=== PATIENT | female | born 1990 | race African-American/Black ===

== ENCOUNTER 2016-05-16 21:59 | Emergency (ER) | payer MEDICAID ==
[~2016-05-16 21:59] MED LIST: FERR1TAB36 PO; PREN1CAP20; ZANT150T2 PO
--- NOTE | 2016-05-16 22:40 | PD ---
HPI Travel History International Travel<30 Days: No Contact w/Intl Traveler<30Days: No Known Affected Area: No History of Present Illness HPI This patient is a 26-year-old 1 para 0 EDC is June 04, 2015 presently at 37 weeks and 2 days she presents with the chief complaint of feeling like she is getting smaller possibly leaking of fluid no susan contractions no vaginal bleeding the baby is active care with Theodora Harmon is courses been unremarkable amnisure is negative History Past Medical History Narrative Medical No known drug allergies no major medical problems Obstetric History Obstetric History First Past Surgical History Surgical History: No Previous Surgery Family History Family History: Negative Social History Alcohol Use: No Tobacco Use: No Substance Abuse: No Allergies-Medications (Allergen,Severity, Reaction): Coded Allergies: No Known Allergies (Verified , 05/11/16) Home Meds Reported Medications Ranitidine (Zantac)150 Mg [id number] Mg PO BID #60 TAB Ref 0 03/22/16 W/O Vit A W/ Fe Carbo (Prenate Mini 18-0.6-0.4-350 mg)1 Cap Cap 03/22/16 Ferrous Sulfate (Iron)325 Mg [id number] Mg PO BIDPC Ref 0 Take after a meal. 03/22/16 Physical Exam Narrative GENERAL: Well-nourished, well-developed patient. Alert oriented 3 and cooperative in no acute distress CARDIOVASCULAR: Regular rate and rhythm without murmurs, gallops, or rubs. RESPIRATORY: Breath sounds equal bilaterally. No accessory muscle use. ABDOMEN/GI: Abdomen is gravid and consistent with 37 weeks gestation no palpable contractions Gravid to [-] weeks size size equals dates Fundal Height: [-] GENITOURINARY: External Genitalia: intact and normal in appearance BUS glands: [-] Cervix: [-] Posterior firm Dilatation: [-] Closed Effacement: [-] 0 Station: [-] Vertex is at a 0 to -1 station Presentation: [-] Vertex Membranes: [intact Uterine Contractions: [-] Patient FHT's: Category: [-] 1 Baseline: [-] 130 Reactive: [-]+ Accelerations up to 160 Variability: [-] Moderate fujf-wc-rali variability Decels: [-] 0 EXTREMITIES: No cyanosis or edema. 2+ reflexes NEUROLOGICAL: Awake and alert. Motor and sensory grossly within normal limits. Five out of 5 muscle strength in all muscle groups. Normal speech. Data Data Vital Signs Reviewed: Yes (blood pressure 113/74 pulse 76 respiration 18 temperature is 98.1) [facility] Medical Record Reviewed: Yes Interpretation(s) 26-year-old at 37 weeks and 2 days No clinical evidence of ruptured membranes Not in labor Category 1 tracing The patient is describing is lightening of the baby descending into the pelvis Plan Patient has been adequately monitored with category 1 tracing Discharge home By mouth fluid hydration Keep her appointment on with [facility] Refer her to what to expect when you're expecting Diagnosis Diagnosis: Primary Impression: Lightening of fetus during in third trimester Disposition: 01 DISCHARGE HOME Condition: Stable Patient Instructions: General Instructions Departure Forms: Tests/Procedures Lacy Finn MD May 16, 2016 22:40
[2016-06-16] MEDS ORDERED: MEDR150I IM (11:26)
[2016-07-14] MEDS ORDERED: DEPO150I IM ×2 (11:31→11:32)
[2016-10-06] MEDS ORDERED: DEPO150I IM (16:27)
== END 2016-05-16 23:05 | disposition home or self-care (01) ==
LOC: HOBED 21:59
DX: O26.893 Other specified pregnancy related conditions, third trimester (principal); Z3A.37 37 weeks gestation of pregnancy
CPT/HCPCS: 84112; 99284

== ENCOUNTER 2016-05-17 20:48 | Emergency (ER) | payer MEDICAID ==
--- NOTE | 2016-05-17 21:34 | PD ---
HPI Chief Complaint Water leaking and having contractions Date Seen: May 17, 2016 Travel History International Travel<30 Days: No Contact w/Intl Traveler<30Days: No History of Present Illness HPI Patient is a 37 week intrauterine followed to [facility] presents complaining of possibly water leaking and having contractions. Denies bleeding. heart rate tracing is reactive with accelerations and she is faby every 2-3 minutes Para: 0 : 1 Allergies-Medications (Allergen,Severity, Reaction): Coded Allergies: No Known Allergies (Verified , 05/11/16) Home Meds Reported Medications Ranitidine (Zantac)150 Mg [id number] Mg PO BID #60 TAB Ref 0 03/22/16 W/O Vit A W/ Fe Carbo (Prenate Mini 18-0.6-0.4-350 mg)1 Cap Cap 03/22/16 Ferrous Sulfate (Iron)325 Mg [id number] Mg PO BIDPC Ref 0 Take after a meal. 03/22/16 Review of Systems Gastrointestinal: Abdominal Pain Physical Exam Narrative GENERAL: Well-nourished, well-developed patient. SKIN: Warm and dry. HEAD: Normocephalic and atraumatic. EYES: No scleral icterus. No injection or drainage. ENT: No nasal drainage noted. Mucous membranes pink. Airway patent. NECK: Supple, trachea midline. No JVD. CARDIOVASCULAR: Regular rate and rhythm without murmurs, gallops, or rubs. RESPIRATORY: Breath sounds equal bilaterally. No accessory muscle use. BREASTS: Bilateral exam showed no masses , no retractions, no nipple discharge. ABDOMEN/GI: Abdomen soft, non-tender, bowel sounds present, no rebound, no guarding Gravid to [36-] weeks size Fundal Height: [35 cm-] GENITOURINARY: External Genitalia: intact and normal in appearance BUS glands: [-] Cervix: [-closed] Dilatation: 0[-] Effacement: [thick-] Station: [-3] Presentation: [-vtx] Membranes: [intact amnisure neg Uterine Contractions: [q 2-3 min-] FHT's: Category: [1-] Baseline: [144-] Reactive: [-yes] Variability: [-] Decels: [-none] EXTREMITIES: No cyanosis or edema. BACK: Nontender without obvious deformity. No CVA tenderness. NEUROLOGICAL: Awake and alert. Motor and sensory grossly within normal limits. Five out of 5 muscle strength in all muscle groups. Normal speech. Data Data Labs amnisure neg MDM Medical Record Reviewed: No Interpretation(s) 37 week intrauterine followed by careful women presents complaining of possible leakage of fluid and contractions no bleeding noted heart rate tracing reactive and she is faby every 2-3 minutes. Patient's amnio sure is negative, and her cervix is closed Plan Plan to discharge patient home to bedrest offered a pain shot for relief that she's thinking about that ,she may opted for Demerol Phenergan IM if not then she can use Tylenol at home liberally increase her by mouth fluids a heating pad use as well as hot bath Diagnosis Diagnosis: Primary Impression: No leakage of amniotic fluid into vagina Additional Impression: False labor Disposition: 01 DISCHARGE HOME Condition: Stable Bryan Murillo II, MD May 17, 2016 21:34
[2016-06-16] MEDS ORDERED: MEDR150I IM (11:26)
[2016-07-14] MEDS ORDERED: DEPO150I IM ×2 (11:31→11:32)
[2016-10-06] MEDS ORDERED: DEPO150I IM (16:27)
== END 2016-05-17 21:50 | disposition home or self-care (01) ==
LOC: HOBED 20:48
DX: O47.1 False labor at or after 37 completed weeks of gestation (principal); Z3A.37 37 weeks gestation of pregnancy
CPT/HCPCS: 59025; 84112

== ENCOUNTER 2016-06-01 01:18 | Inpatient (IN) | payer MEDICAID ==
[2016-06-01] VITALS (72 sets, daily range): BP systolic 72–124; BP diastolic 48–102; PULSE 59–111; RESP 18–20; TEMP 97–98.3
[~2016-06-01] VITALS: Ht 157.5 cm; Wt 58.5 kg
[2016-06-01] MEDS ORDERED: LACTATED RINGER'S 1000 ML INJ 1,000 ML IV PRN (02:08)
--- NOTE | 2016-06-01 02:08 | HHI.HP ---
HPI Chief Complaint Planes of contractions and leaking fluid Date Seen: Jun 01, 2016 Travel History International Travel<30 Days: No Contact w/Intl Traveler<30Days: No History of Present Illness HPI Patient is a 26-year-old black female at 39 weeks 5 days seen by [facility] presents complaining of contractions and leakage of fluid denies bleeding. Her baby is active heart rate tracing is reactive and she is faby every 2 minutes, her amnio sure is positive she is leakage of fluid noted on exam Para: 0 : 1 History Past Medical History Medical History: Denies Significant Hx Social History Alcohol Use: No Tobacco Use: No Substance Abuse: No Allergies-Medications (Allergen,Severity, Reaction): Coded Allergies: No Known Allergies (Verified , 05/30/16) Home Meds Reported Medications Ranitidine (Zantac)150 Mg [id number] Mg PO BID #60 TAB Ref 0 03/22/16 W/O Vit A W/ Fe Carbo (Prenate Mini 18-0.6-0.4-350 mg)1 Cap Cap 03/22/16 Ferrous Sulfate (Iron)325 Mg [id number] Mg PO BIDPC Ref 0 Take after a meal. 03/22/16 Review of Systems General / Constitutional: No: Fever, Weight Gain, Chills, Other Eyes: No: Diploplia, Blurred Vision, Visual changes, Pain, Photophobia HENT: No: Headaches, Vertigo, Lightheadedness Cardiovascular: No: Irregular Rhythm, Chest Pain or Discomfort, Palpitations, Tachycardia, Syncope, Varicosities, Edema, Cyanosis Respiratory: No: Cough, Short of Breath, Other Gastrointestinal: No: Nausea, Vomiting, Diarrhea Genitourinary: No: Decreased Urinary Output, Oliguria Musculoskeletal: No: Limited ROM, Weakness, Cramping, Edema, Pain Skin: No Rash, No Itching, No Dryness, No Lumps, No Change in Pigmentation, No Change in Nails, No Alopecia, No Lesions Neurologic: No: Weakness, Dizziness, Syncope, Focal Abnormalities, Coordination Problem, Headache, Slurred Speech, Seizures Psychiatric: No: Depression, Suicidal Ideations, Homicidal Ideation Endocrine: No: Heat Intolerance, Cold Intolerance, Polydipsia, Polyuria, Other Physical Exam Narrative GENERAL: Well-nourished, well-developed patient. SKIN: Warm and dry. HEAD: Normocephalic and atraumatic. EYES: No scleral icterus. No injection or drainage. ENT: No nasal drainage noted. Mucous membranes pink. Airway patent. NECK: Supple, trachea midline. No JVD. CARDIOVASCULAR: Regular rate and rhythm without murmurs, gallops, or rubs. RESPIRATORY: Breath sounds equal bilaterally. No accessory muscle use. BREASTS: Bilateral exam showed no masses , no retractions, no nipple discharge. ABDOMEN/GI: Abdomen soft, non-tender, bowel sounds present, no rebound, no guarding Gravid to [38-] weeks size Fundal Height: [35 cm-] GENITOURINARY: External Genitalia: intact and normal in appearance BUS glands: [-] Cervix: [-] Dilatation: [-1] Effacement: [80-] Station: [-2] Presentation: [vtx-] Membranes: [ ruptured] + amnisure Uterine Contractions: [q 2 min-] FHT's: Category: [1-] Baseline: [144-] Reactive: [yes-] Variability: [-mod] Decels: [none-] EXTREMITIES: No cyanosis or edema. BACK: Nontender without obvious deformity. No CVA tenderness. NEUROLOGICAL: Awake and alert. Motor and sensory grossly within normal limits. Five out of 5 muscle strength in all muscle groups. Normal speech. Data Data Labs amnisure + Assessment/Plan Assessment and Plan This patient is a 26-year-old white female at 39-40 weeks presents complaining of leakage of fluid contractions, she is noted to be in early latent phase labor with a ruptured membranes, and be sure is positive, cervix is 1 cm 80% -2 This patient to be admitted the hospital and augmented as needed necessary and anticipate vaginal delivery, her GBS is negative Bryan Murillo II, MD Jun 01, 2016 02:08
[2016-06-01] MEDS ORDERED: OXYTOCIN 30 UNITS-500ML PREMIX 500 ML IV ONE (02:15)
[2016-06-01] MEDS ORDERED: SODIUM CHLORID 0.9% 500 ML INJ 500 ML IV PRN (02:15)
[2016-06-01] MEDS ORDERED: MINERAL OIL 10 ML VIAL TOPICAL PRN (02:15)
[2016-06-01] MEDS ORDERED: CITRIC ACID-SODIUM CITRATE LIQ 30 ML UDC PO SCH (02:15)
[2016-06-01] MEDS ORDERED: LIDOCAINE HCL 1% 50 ML VIAL INFIL PRN (02:15)
[2016-06-01] MEDS ORDERED: LIDOCAINE HCL 1% 50 ML VIAL I-DERMAL PRN (02:15)
[2016-06-01] MEDS ORDERED: SODIUM CHLOR 0.9% 1000 ML INJ 1,000 ML IV PRN (02:28)
[2016-06-01] MEDS: LACTATED RINGER'S 1000 ML INJ 1,000 ML IV SCH ×2 (02:38→18:08)
[2016-06-01 02:44] LABS: AUTOMATED NEUTROPHIL # 5.5 TH/MM3 (1.8-7.7); BASOPHIL % 0.4 % (0.0-2.0); EOSINOPHIL % 0.4 % (0.0-4.0); HEMATOCRIT 33.9 % (35.0-46.0); HEMO FLAGS DIFF FINAL; LYMPHOCYTE # 2.4 TH/MM3 (1.0-4.8); MEAN CELL VOLUME 87.4 FL (80.0-100.0); MEAN CORPUSCULAR HEMOGLOBIN 28.7 PG (27.0-34.0); MEAN CORPUSCULAR HGB CONC 32.9 % (32.0-36.0); MONO % 9.6 % (0.0-8.0); NEUT % 62.6 % (16.0-70.0); PLATELET COUNT 175 TH/MM3 (150-450); RED BLOOD COUNT 3.88 MIL/MM3 (4.00-5.30); RED CELL DISTRIBUTION WIDTH 13.4 % (11.6-17.2); WHITE BLOOD COUNT 8.7 TH/MM3 (4.0-11.0)
[2016-06-01 02:45] LABS: BACTERIA, URINE RARE /hpf; BLOOD, URINE NEG (NEG); COMMENT (UR) CULT NOT INDICATED; CULTURE IF INDICATED CULT NOT INDICATED; GLUCOSE,URINE NEG (NEG); KETONE, URINE NEG (NEG); MUCUS URINE FEW /lpf (OCC); NITRITE,URINE NEG (NEG); PH, URINE 6.5 (5.0-8.5); SQUAMOUS EPITHELIAL CELL URINE <1 /hpf (0-5); URINE COLOR LIGHT-YELLOW (YELLW/STRAW)
[2016-06-01] MEDS ORDERED: BUTORPHANOL TARTRATE INJ 2 MG/ML VIAL IM PRN (06:30)
[2016-06-01] MEDS ORDERED: BUTORPHANOL TARTRATE INJ 2 MG/ML VIAL IV PUSH PRN (07:00)
[2016-06-01] MEDS ORDERED: BUTORPHANOL TARTRATE INJ 1 MG/ML VIAL IV PUSH PRN (07:00)
[2016-06-01] MEDS ORDERED: fentaNYL 2MCG-BUPIV 0.125% INJ 100 ML ONE (07:16)
[2016-06-01] MEDS ORDERED: ePHEDrine/NS 50 MG/5 ML SYR ONE (07:16)
[2016-06-01] MEDS ORDERED: ePHEDrine/NS 50 MG/5 ML SYR IV PRN (08:45)
[2016-06-01] MEDS ORDERED: fentaNYL 2MCG-BUPIV 0.125% INJ 100 ML EPIDURAL SCH (08:45)
[2016-06-01] MEDS ORDERED: DO NOT ADMINISTER ANTICOAGULANTS XX PRN (08:45)
[2016-06-01] MEDS ORDERED: NO SYSTEM NARCOTICS XX PRN (08:45)
--- NOTE | 2016-06-01 09:26 | PD.LABORPN ---
Subjective Subjective Patient resting in bed. Some pain with contractions. Otherwise, no complaints Objective Vital Signs Vital Signs Date Time Temp Pulse Resp B/P Pulse Ox O2 Delivery O2 Flow Rate FiO2 06/01/16 05:45 97.0 18 06/01/16 05:09 18 06/01/16 04:02 18 Objective Pelvic Exam: Dilatation: 5 Effacement: 100% Station: -1 Presentation: vertex Membranes: ruptured Uterine Contractions: q5-7 minutes FHT's: Category: 1 Baseline: 120 Reactive: yes Variability: moderate Decels: 1-2 variables Assessment/Plan Assessment and Plan 26 year old at 39/5 in labor - Category 1 FHT with a couple variable - CVX 5/100/-1 Plan: - Expectant management - LR @ 125ml/h - Anticipate vaginal delivery Davis Redding MD R1 Jun 01, 2016 09:26
--- NOTE | 2016-06-01 10:28 | PD.LABORPN ---
Subjective Subjective Changing shifts Dr. Ford coming on duty Chart reviewed This patient is a 26-year-old 1 para 0 at 39 weeks and 5 days she states she started leaking fluid about 11 PM last night her testing was positive upon admission Group B strep negative No known drug allergies Patient presently has an epidural for pain relief and is comfortable Presently blood pressure 98/70 pulse 72 O2 sat of 100% Baseline heart rate 1:30 with accelerations up to 160 Pelvic examination; cervix is 6 cm dilated 100% effaced with the vertex at a 0 station Estimated weight of 6-1/2 pounds Patient is faby irregularly As she is making change we'll not start Pitocin at this point We'll reevaluate for progress if no progress beyond 6 cm we'll augment with Pitocin at that time Patient agrees with this plan Objective Vital Signs Vital Signs Date Time Temp Pulse Resp B/P Pulse Ox O2 Delivery O2 Flow Rate FiO2 06/01/16 09:48 20 06/01/16 09:45 61 112/58 06/01/16 09:40 76 06/01/16 09:30 66 109/66 06/01/16 09:25 68 06/01/16 09:20 63 06/01/16 09:15 61 98/61 06/01/16 09:11 20 06/01/16 09:10 70 06/01/16 09:05 75 06/01/16 09:00 89 105/48 06/01/16 09:00 74 06/01/16 08:55 79 06/01/16 08:50 84 06/01/16 08:45 82 06/01/16 08:45 93 101/50 06/01/16 08:30 111 06/01/16 08:15 64 06/01/16 08:05 96 06/01/16 08:00 85 06/01/16 07:55 98 06/01/16 07:50 79 06/01/16 07:40 83 06/01/16 05:45 97.0 18 06/01/16 05:09 18 06/01/16 04:02 18 Objective Pelvic Exam: Cervix: [-] Dilatation: [-] Effacement: [-] Station: [-] Presentation: [-] Membranes: [intact or ruptured] Uterine Contractions: [-] FHT's: Category: [-] Baseline: [-] Reactive: [-] Variability: [-] Decels: [-] Lacy Finn MD Jun 01, 2016 10:28
--- NOTE | 2016-06-01 13:27 | PD.LABORPN ---
Subjective Subjective Patient examined 100% effaced 8-9 cm dilated at a +1 almost +2 station Blood pressures 107/57 Contractions occurring about every 5 minutes Category 1 tracing Patient comfortable with an epidural Anticipate vaginal delivery Objective Vital Signs Vital Signs Date Time Temp Pulse Resp B/P Pulse Ox O2 Delivery O2 Flow Rate FiO2 06/01/16 12:15 97.8 76 20 106/59 06/01/16 12:10 74 06/01/16 12:05 76 06/01/16 12:00 68 110/66 06/01/16 11:55 77 06/01/16 11:50 74 06/01/16 11:45 75 105/67 06/01/16 11:40 78 06/01/16 11:35 71 06/01/16 11:30 76 102/64 06/01/16 11:25 72 06/01/16 11:20 69 06/01/16 11:15 72 105/65 06/01/16 11:05 74 06/01/16 11:00 72 06/01/16 11:00 72 20 106/72 06/01/16 10:55 68 06/01/16 10:50 67 06/01/16 10:45 77 06/01/16 10:45 85 118/64 06/01/16 10:35 73 06/01/16 10:30 62 06/01/16 10:30 74 20 106/60 06/01/16 10:25 76 06/01/16 10:20 70 06/01/16 10:15 71 98/70 06/01/16 10:15 97 06/01/16 10:10 70 06/01/16 10:05 70 06/01/16 10:00 69 94/53 06/01/16 09:48 20 06/01/16 09:45 61 06/01/16 09:45 61 112/58 06/01/16 09:40 76 06/01/16 09:30 66 06/01/16 09:30 66 109/66 06/01/16 09:25 68 06/01/16 09:20 63 06/01/16 09:15 61 98/61 06/01/16 09:15 64 06/01/16 09:11 20 06/01/16 09:10 70 06/01/16 09:05 75 06/01/16 09:00 89 105/48 06/01/16 09:00 74 06/01/16 08:55 79 06/01/16 08:50 84 06/01/16 08:45 82 06/01/16 08:45 93 101/50 06/01/16 08:30 111 06/01/16 08:15 64 06/01/16 08:05 96 06/01/16 08:00 85 06/01/16 07:55 98 06/01/16 07:50 79 06/01/16 07:40 83 06/01/16 05:45 97.0 18 Objective Pelvic Exam: Cervix: [-] Dilatation: [-] Effacement: [-] Station: [-] Presentation: [-] Membranes: [intact or ruptured] Uterine Contractions: [-] FHT's: Category: [-] Baseline: [-] Reactive: [-] Variability: [-] Decels: [-] Lacy Finn MD Jun 01, 2016 13:27
[2016-06-01] MEDS ORDERED: OXYTOCIN 30 UNITS-500ML PREMIX 500 ML ONE (14:07)
--- NOTE | 2016-06-01 14:57 | PD.OB.DELI ---
Delivery Date: Jun 01, 2016 Anesthesia: Epidural Episiotomy: None Vaginal Delivery: Normal Presentation: Occiput anterior Nuchal Cord: x1 (loosely) : Male Weight: 2370 Infant Care: Suctioned Placenta: Spontaneous delivery Laceration: Vaginal laceration, 2 deg Repair: Chromic running Additional Information This 26-year-old 1 para 1 at 39 and 4 presented with spontaneous rupture of membranes progressed to completely dilated completely effaced delivered over an intact perineum a viable male infant weight 5 lbs. 4 oz. equaling 2370grams with Apgars of 9 at 1 minute and 9 at 5 minutes Placenta delivered spontaneously and intact She sustained a small second-degree laceration which was repaired with 2-0 chromic suture epidural in force for pain relief Estimated blood loss less than 300 cc Sponge and instrument count were correct No active bleeding Uterus firm Baby stable mother stable Lacy Finn MD Jun 01, 2016 14:56
[2016-06-01] MEDS ORDERED: BENZOCAINE 20% TOPICAL SPRAY 60 ML CAN TOPICAL PRN (15:00)
[2016-06-01] MEDS ORDERED: ZOLPIDEM TARTRATE 5 MG TAB PO PRN (15:00)
[2016-06-01] MEDS ORDERED: ALUMINUM/MAGNESIUM/SIMETH 30 ML CUP PO PRN (15:00)
[2016-06-01] MEDS ORDERED: SODIUM CHLORIDE 0.9% FLUSH 5 ML FLUSH IV PRN (15:00)
[2016-06-01] MEDS ORDERED: DOCUSATE SODIUM 50 MG/SENNA 8.6 MG TAB PO PRN (15:00)
[2016-06-01] MEDS ORDERED: WITCH HAZEL 50%/GLYCERIN 12.5% 40 PAD JAR TOPICAL PRN (15:00)
[2016-06-01] MEDS ORDERED: ONDANSETRON ODT 4 MG TAB PO PRN (15:00)
[2016-06-01] MEDS: IBUPROFEN 600 MG TAB PO PRN ×2 (15:54→22:24)
[2016-06-01] MEDS ORDERED: MEASLES, MUMPS, RUBELLA VACCINE 0.5 ML VIAL SQ ONE (16:00)
[2016-06-01] MEDS ORDERED: DIPHTH/TETANUS/ACEL PERTUSSIS (BOOSTER) 0.5 ML VIAL/PFS IM ONE (16:00)
[2016-06-01] MEDS: SODIUM CHLORIDE 0.9% FLUSH 5 ML FLUSH IV SCH (21:00)
[2016-06-02] MEDS: LACTATED RINGER'S 1000 ML INJ 1,000 ML IV SCH ×2 (01:09→18:08)
[2016-06-02] MEDS: IBUPROFEN 600 MG TAB PO PRN ×3 (06:34→21:41)
--- NOTE | 2016-06-02 08:41 | HHI.OB ---
Subjective Post Day: 1 Remarks day #1. AFVSS overnight. Pain minimal. Decreased lochia. Denies dysuria. No breast tenderness. Appetite good. Bottle feeding. No nausea or vomiting. Endorses flatus. Denies bowel movement. Ambulating well. Denies calf pain, shortness of breath, or cough. Otherwise, she is doing well this morning and has no other complaints. Objective Vitals/I&O Vital Signs Date Time Temp Pulse Resp B/P Pulse Ox O2 Delivery O2 Flow Rate FiO2 06/01/16 17:28 98.3 06/01/16 17:28 90 18 106/65 06/01/16 16:00 68 117/69 06/01/16 15:51 20 06/01/16 15:46 63 117/68 06/01/16 15:30 68 122/102 06/01/16 15:28 20 06/01/16 15:15 77 117/67 06/01/16 15:00 74 124/76 06/01/16 14:58 20 06/01/16 14:45 78 118/65 06/01/16 14:00 78 06/01/16 13:45 71 06/01/16 13:30 69 06/01/16 13:25 80 06/01/16 13:20 63 06/01/16 13:15 64 06/01/16 13:15 68 107/57 06/01/16 13:06 20 06/01/16 13:00 67 101/64 06/01/16 13:00 69 06/01/16 12:55 72 06/01/16 12:50 72 06/01/16 12:45 68 109/63 06/01/16 12:45 66 06/01/16 12:40 68 06/01/16 12:31 67 72/50 06/01/16 12:30 59 06/01/16 12:15 64 06/01/16 12:15 97.8 76 20 106/59 06/01/16 12:10 74 06/01/16 12:05 76 06/01/16 12:00 68 110/66 06/01/16 12:00 71 06/01/16 11:55 77 06/01/16 11:50 74 06/01/16 11:45 70 06/01/16 11:45 75 105/67 06/01/16 11:40 78 06/01/16 11:35 71 06/01/16 11:30 76 102/64 06/01/16 11:30 77 06/01/16 11:25 72 06/01/16 11:20 69 06/01/16 11:15 72 06/01/16 11:15 72 105/65 06/01/16 11:05 74 06/01/16 11:00 72 06/01/16 11:00 72 20 106/72 06/01/16 10:55 68 06/01/16 10:50 67 06/01/16 10:45 77 06/01/16 10:45 85 118/64 06/01/16 10:35 73 06/01/16 10:30 62 06/01/16 10:30 74 20 106/60 06/01/16 10:25 76 06/01/16 10:20 70 06/01/16 10:15 71 98/70 06/01/16 10:15 97 06/01/16 10:10 70 06/01/16 10:05 70 06/01/16 10:00 69 94/53 06/01/16 09:48 20 06/01/16 09:45 61 06/01/16 09:45 61 112/58 06/01/16 09:40 76 06/01/16 09:30 66 06/01/16 09:30 66 109/66 06/01/16 09:25 68 06/01/16 09:20 63 06/01/16 09:15 61 98/61 06/01/16 09:15 64 06/01/16 09:11 20 06/01/16 09:10 70 06/01/16 09:05 75 06/01/16 09:00 89 105/48 06/01/16 09:00 74 06/01/16 08:55 79 06/01/16 08:50 84 06/01/16 08:45 82 06/01/16 08:45 93 101/50 Objective Remarks GENERAL: Well-nourished, well-developed patient. CARDIOVASCULAR: Regular rate and rhythm without murmurs, gallops, or rubs. RESPIRATORY: Breath sounds equal bilaterally. No accessory muscle use. ABDOMEN/GI: Abdomen soft, non-tender. Fundus: Firm, non-tender at umbilicus. GENITOURINARY: Light to moderate bleeding. EXTREMITIES: No cyanosis or edema, non-tender, without signs of DVT. Medications and IVs Current Medications Medications (Trade) Dose Ordered Sig/Davida Route Start Time Stop Time Status Last Admin Lactated Ringer's 1,000 ml @ 125 mls/hr Q8H IV 06/01/16 02:08 06/01/16 02:38 Lactated Ringer's 1,000 ml @ 3,000 mls/hr Q20M PRN IV 06/01/16 02:08 Sodium Chloride 500 ml @ 1,000 mls/hr ONCE PRN IV 06/01/16 02:15 06/08/16 02:14 (NS 1000 ml Inj) 1,000 ml @ 100 mls/hr Q10H PRN IV 06/01/16 02:28 (Muri-Lube Oil) 10 ml UNSCH PRN TOPICAL 06/01/16 02:15 (Stadol Inj) 1 mg Q2H PRN IV PUSH 06/01/16 07:00 (Stadol Inj) 2 mg Q2H PRN IV PUSH 06/01/16 07:00 Miscellaneous Information No systemic narcotics to be given except... UNSCH PRN XX 06/01/16 08:45 06/02/16 08:44 Miscellaneous Information DO NOT ADMINISTER ANY ANTICOAGUL... UNSCH PRN XX 06/01/16 08:45 06/02/16 08:44 (fentaNYL 2MCG-BUPIV 0.125% INJ) 100 ml @ 0 mls/hr TITRATE EPIDURAL 06/01/16 08:45 (ePHEDrine/NS 50 MG/5 ML SYR) 10 mg UNSCH PRN IV 06/01/16 08:45 06/02/16 08:44 (NS Flush) 2 ml BID IV 06/01/16 21:00 (NS Flush) 2 ml UNSCH PRN IV 06/01/16 15:00 (Tylenol) 650 mg Q4H PRN PO 06/01/16 15:00 (Motrin) 600 mg Q6H PRN PO 06/01/16 15:00 06/02/16 06:34 (Americaine 20% Top Spr) 1 spray Q4H PRN TOPICAL 06/01/16 15:00 06/01/16 22:24 (Tucks Pads) 1 applic QID PRN TOPICAL 06/01/16 15:00 06/01/16 22:24 (Gill-Colace) 2 tab Q12H PRN PO 06/01/16 15:00 (Ambien) 5 mg HS PRN PO 06/01/16 15:00 (Mag-Al Plus Susp Liq) 15 ml Q8H PRN PO 06/01/16 15:00 (Zofran Odt) 4 mg Q6H PRN PO 06/01/16 15:00 Assessment/Plan Assessment and Plan 26y/o who is PPD#1 s/p . -Continue routine care. -Percocet and Motrin PRN pain. -Encouraged OOB. Advised pelvic rest for 6 wks. -Will need a f/u appt. within 6 wks. -Re: ctrl, she would like the Depo shot -D/c in 1-2 more days. [facility]dw OB attending Discharge Planning 1-2 days Davis Redding MD R1 Jun 02, 2016 08:41
[2016-06-02] MEDS: ACETAMINOPHEN 325 MG TAB PO PRN ×2 (11:24→21:41)
[2016-06-02] MEDS: SODIUM CHLORIDE 0.9% FLUSH 5 ML FLUSH IV SCH (21:00)
[2016-06-03] MEDS: LACTATED RINGER'S 1000 ML INJ 1,000 ML IV SCH (01:10)
[2016-06-03] MEDS: ACETAMINOPHEN 325 MG TAB PO PRN ×2 (01:12→06:17)
[2016-06-03] MEDS: IBUPROFEN 600 MG TAB PO PRN (06:16)
[2016-06-03] MEDS ORDERED: IBUP-232 PO (06:59)
[2016-06-03] MEDS ORDERED: SENN1TAB PO (06:59)
--- NOTE | 2016-06-03 07:00 | HHI.DCPOC ---
Discharge Care Plan Diagnosis: (1) Vaginal delivery Goals to Promote Your Health * To prevent worsening of your condition and complications * To maintain your health at the optimal level Directions to Meet Your Goals Take your medications as prescribed Follow your dietary instruction Follow activity as directed Keep your appointments as scheduled Take your immunizations and boosters as scheduled If your symptoms worsen call your PCP, if no PCP go to Urgent Care Center or Emergency Room Smoking is Dangerous to Your Health. Avoid second hand smoke Call the 24-hour hour crisis hotline for domestic abuse at [place] Alvarado MD R2 Jun 03, 2016 07:00
--- NOTE | 2016-06-03 07:19 | HHI.OB ---
Subjective Remarks day #2. AFVSS overnight. Pain minimal. Decreased lochia. Denies dysuria. No breast tenderness. Appetite good. Bottle feeding. No nausea or vomiting. Endorses flatus. Denies bowel movement. Ambulating well. Denies calf pain, shortness of breath, or cough. Otherwise, she is doing well this morning and has no other complaints. ([place] Alvarado MD R2) Post Day: 2 (Sue Galvez MD) Objective Objective Remarks GENERAL: Well-nourished, well-developed patient. CARDIOVASCULAR: Regular rate and rhythm without murmurs, gallops, or rubs. RESPIRATORY: Breath sounds equal bilaterally. No accessory muscle use. ABDOMEN/GI: Abdomen soft, non-tender. Fundus: Firm, non-tender at umbilicus. GENITOURINARY: Light to moderate bleeding. EXTREMITIES: No cyanosis or edema, non-tender, without signs of DVT. Medications and IVs Current Medications Medications (Trade) Dose Ordered Sig/Davida Route Start Time Stop Time Status Last Admin Lactated Ringer's 1,000 ml @ 125 mls/hr Q8H IV 06/01/16 02:08 06/01/16 02:38 Lactated Ringer's 1,000 ml @ 3,000 mls/hr Q20M PRN IV 06/01/16 02:08 Sodium Chloride 500 ml @ 1,000 mls/hr ONCE PRN IV 06/01/16 02:15 06/08/16 02:14 (NS 1000 ml Inj) 1,000 ml @ 100 mls/hr Q10H PRN IV 06/01/16 02:28 (Muri-Lube Oil) 10 ml UNSCH PRN TOPICAL 06/01/16 02:15 (Stadol Inj) 1 mg Q2H PRN IV PUSH 06/01/16 07:00 Butorphanol Tartrate 2 mg 2 mg Q2H PRN IV PUSH 06/01/16 07:00 (fentaNYL 2MCG-BUPIV 0.125% INJ) 100 ml @ 0 mls/hr TITRATE EPIDURAL 06/01/16 08:45 (NS Flush) 2 ml BID IV 06/01/16 21:00 (NS Flush) 2 ml UNSCH PRN IV 06/01/16 15:00 (Tylenol) 650 mg Q4H PRN PO 06/01/16 15:00 06/03/16 06:17 (Motrin) 600 mg Q6H PRN PO 06/01/16 15:00 06/03/16 06:16 (Americaine 20% Top Spr) 1 spray Q4H PRN TOPICAL 06/01/16 15:00 06/01/16 22:24 (Tucks Pads) 1 applic QID PRN TOPICAL 06/01/16 15:00 06/01/16 22:24 (Gill-Colace) 2 tab Q12H PRN PO 06/01/16 15:00 06/02/16 21:39 (Ambien) 5 mg HS PRN PO 06/01/16 15:00 (Mag-Al Plus Susp Liq) 15 ml Q8H PRN PO 06/01/16 15:00 06/03/16 01:21 (Zofran Odt) 4 mg Q6H PRN PO 06/01/16 15:00 ([place] Alvarado MD R2) Assessment/Plan Assessment and Plan 26y/o who is PPD#2 s/p . -Continue routine care. -Percocet and Motrin PRN pain. -Encouraged OOB. Advised pelvic rest for 6 wks. -Will need a f/u appt. within 6 wks. -Re: ctrl, she would like the Depo shot -D/c today. wdw OB attending ([place] Alvarado MD R2) Attending Attestation PPD #2 s/p Doing well Desires Depo Provera for BC PP precautions F/u with [facility] in 2 weeks Patient seen and examined. D/w Dr. Alvarado and Dr. Redding (Sue Galvez MD) [place] Alvarado MD R2 Jun 03, 2016 07:19 Sue Galvez MD Jun 03, 2016 08:18
[2016-06-03] MEDS: SODIUM CHLORIDE 0.9% FLUSH 5 ML FLUSH IV SCH (08:13)
[2016-06-16] MEDS ORDERED: MEDR150I IM (11:26)
[2016-07-14] MEDS ORDERED: DEPO150I IM ×2 (11:31→11:32)
[2016-10-06] MEDS ORDERED: DEPO150I IM (16:27)
== END 2016-06-03 14:22 | disposition home or self-care (01) | DRG 775 ==
LOC: HOBED 01:18 → H2EB 02:04 → H1EA 17:13
PROVIDERS: ADMIT Obstetrics & Gynecology Maternal & Fetal Medicine; ATTEND Obstetrics & Gynecology Maternal & Fetal Medicine
PROC: 10E0XZZ Delivery of Products of Conception, External Approach (ICD-10-PCS; principal; 2016-06-01)
PROC: 0KQM0ZZ Repair Perineum Muscle, Open Approach (ICD-10-PCS; 2016-06-01)
PROC: 00HU33Z Insertion of Infusion Device into Spinal Canal, Percutaneous Approach (ICD-10-PCS; 2016-06-01)
PROC: 3E0R3CZ (ICD-10-PCS; 2016-06-01)
DX: O70.1 Second degree perineal laceration during delivery (principal); Z37.0 Single live birth; O69.81X0 Labor and delivery complicated by cord around neck, without compression, not applicable or unspecified; Z3A.39 39 weeks gestation of pregnancy
CPT/HCPCS: 81001; 84112; 85025; 86900; 86901; 88307; 99285; J2590; J3010; J7120